=== PATIENT | male | born 2000 | race Caucasian/White ===

== ENCOUNTER 2018-05-25 17:39 | Emergency (ER) | payer BC ==
[2018-05-25 17:56] VITALS: BP 146/90
--- NOTE | 2018-05-25 18:29 | UC ---
Complaint Male HPI - HPI Summary HPI Summary: Had unprotected sexual encounter with female partner about a week ago. She developed new herpes outbreak this week, informed pt that he had given it to her. He denies any hx of herpes outbreaks outside of cold sores around his mouth when he was a child. No urinary symptoms or sores on his genitals. - History of Current Complaint Chief Complaint: UCSTDScreening Stated Complaint: STD TESTING Time Seen by Provider: 05/25/18 18:05 Hx Obtained From: Patient Onset/Duration: Other Severity Currently: None Pain Intensity: 0 Pain Scale Used: 0-10 Numeric Location: None Associated Signs And Symptoms: Positive: Negative - Allergies/Home Medications Allergies/Adverse Reactions: Allergies Allergy/AdvReac Type Severity Reaction Status Date / Time No Known Allergies Allergy Verified 05/25/18 17:54 Home Medications: Home Medications NK [No Home Medications Reported] 05/25/18 [History Confirmed 05/25/18] PMH/Surg Hx/FS Hx/Imm Hx Previously Healthy: Yes - Surgical History Surgical History: Yes Surgery Procedure, Year, and Place: RIGHT SHOULDER SURGERY - Family History Known Family History: Positive: Hypertension - Social History Occupation: Student Alcohol Use: Daily Substance Use Type: None Smoking Status (MU): Never Smoked Tobacco Review of Systems Constitutional: Negative Skin: Negative Eyes: Negative ENT: Negative Respiratory: Negative Cardiovascular: Negative Gastrointestinal: Negative Genitourinary: Negative Motor: Negative Neurovascular: Negative Musculoskeletal: Negative Neurological: Negative Psychological: Negative Is Patient Immunocompromised?: No All Other Systems Reviewed And Are Negative: Yes Physical Exam Triage Information Reviewed: Yes Appearance: Well-Appearing, No Pain Distress, Well-Nourished Vital Signs: Initial Vital Signs Temp 99.2 F 05/25/18 17:52 Pulse 80 05/25/18 17:52 Resp 16 05/25/18 17:52 BP 146/90 05/25/18 17:52 Pulse Ox 98 05/25/18 17:52 Vital Signs Reviewed: Yes Eye Exam: Normal Eyes: Positive: Conjunctiva Clear ENT Exam: Normal ENT: Positive: Normal ENT inspection, Hearing grossly normal, Pharynx normal, TMs normal Dental Exam: Normal Neck exam: Normal Neck: Positive: Supple, Nontender, No Lymphadenopathy Respiratory Exam: Normal Respiratory: Positive: Chest non-tender, Lungs clear, Normal breath sounds, No respiratory distress, No accessory muscle use Cardiovascular Exam: Normal Cardiovascular: Positive: RRR, No Murmur Male Genital Exam: Positive: Other - Pt declined exam, no symptoms Musculoskeletal Exam: Normal Neurological Exam: Normal Neurological: Positive: Alert Psychological Exam: Normal Skin Exam: Normal Complaint Male Course/Dx - Differential Dx/Diagnosis Provider Diagnoses: STI exposures. Elevated blood pressure due to anxiety Discharge - Sign-Out/Discharge Documenting (check all that apply): Patient Departure All imaging exams completed and their final reports reviewed: No Studies - Discharge Plan Condition: Stable Disposition: HOME Patient Education Materials: Sexually Transmitted Diseases (ED) Referrals: No Primary Care Phys,NOPCP [Primary Care Provider] - Additional Instructions: Tests pending. We will treat if anything comes up positive. - Billing Disposition and Condition Condition: STABLE Disposition: Home
== END 2018-05-25 18:23 | disposition home or self-care (01) ==
LOC: UCCORT 17:39
DX: Z20.2 Contact with and (suspected) exposure to infections with a predominantly sexual mode of transmission (principal); R03.0 Elevated blood-pressure reading, without diagnosis of hypertension; F41.9 Anxiety disorder, unspecified
CPT/HCPCS: 36415; 86592; 86703; 87491; 87591; 99201; G0463